=== PATIENT | male | born 1990 | race Two or more races ===

== ENCOUNTER 2022-08-13 02:35 | Emergency (ER) | payer SELFPAY ==
[~2022-08-13] VITALS: Ht 167.6 cm; Wt 88.6 kg
[2022-08-13 02:53] VITALS: BP 130/85
[2022-08-13] MEDS ORDERED: IBUP800T27 PO (03:39)
[2022-08-13] MEDS ORDERED: KETOROLAC TROMETH 60MG/2ML VIAL IM ONE (03:45)
== END 2022-08-13 04:20 | disposition home or self-care (01) ==
LOC: ER 02:35
DX: S93.502A Unspecified sprain of left great toe, initial encounter (principal); F12.90 Cannabis use, unspecified, uncomplicated; X58.XXXA Exposure to other specified factors, initial encounter; Y93.89 Activity, other specified; Y92.89 Other specified places as the place of occurrence of the external cause; Y99.8 Other external cause status
CPT/HCPCS: 73630; 96372; 99283; J1885

== ENCOUNTER 2023-06-05 17:39 | Emergency (ER) | payer SELFPAY ==
[~2023-06-05] VITALS: Ht 170.2 cm; Wt 88.6 kg
[~2023-06-05 17:39] MED LIST: IBUP-1456 PO
[2023-06-05 17:51] VITALS: BP 147/95; PULSE 117; RESP 16; TEMP 98.2; O2SAT 97
[2023-06-05] MEDS ORDERED: KETOROLAC TROMETH 60MG/2ML VIAL IM ONE (20:30)
[2023-06-05] MEDS ORDERED: DexAMETHasone SOD PHOS 10MG/1ML VIAL INJ IM ONE (21:45)
[2023-06-05] MEDS ORDERED: PRED20TA2 PO (22:00)
[2023-06-05] MEDS ORDERED: IBUP-1455 PO (22:00)
[2023-06-05] MEDS ORDERED: COLC1CAP PO (22:32)
== END 2023-06-05 22:33 | disposition home or self-care (01) ==
LOC: ER 17:39
DX: M10.9 Gout, unspecified (principal); M79.674 Pain in right toe(s); F15.90 Other stimulant use, unspecified, uncomplicated; Z79.899 Other long term (current) drug therapy
CPT/HCPCS: 96372; 99284; J1100; J1885